=== PATIENT | female | born 1970 ===

== ENCOUNTER 2021-10-23 06:00 | Outpatient (RCR) | payer MEDICARE, MEDICAID, SELFPAY | END 2021-10-31 23:59 | disposition home or self-care (01) | LOC: SST 06:00 | PROVIDERS: Referring Provider Internal Medicine; Visit Provider Internal Medicine | DX: I67.9 Cerebrovascular disease, unspecified (principal); I69.30 Unspecified sequelae of cerebral infarction | CPT/HCPCS: 92607; 92608 ==

== ENCOUNTER 2022-03-03 06:00 | Outpatient (RCR) | payer MEDICARE, MEDICAID, SELFPAY | END 2022-04-02 23:59 | disposition home or self-care (01) | LOC: SST 06:00 | PROVIDERS: Referring Provider Internal Medicine; Visit Provider Internal Medicine | DX: I69.820 Aphasia following other cerebrovascular disease (principal) | CPT/HCPCS: 92609 ==